=== PATIENT | female | born 1955 | race Asian ===

== ENCOUNTER 2016-09-10 10:23 | Emergency (ER) | payer MEDICAID ==
[~2016-09-10] VITALS: Ht 160 cm; Wt 58.0 kg
[~2016-09-10 10:23] MED LIST: CYCL5TAB PO; FERR325T20 PO; GABA100C8 PO; OMEP-110 PO
[2016-09-10] MEDS ORDERED: DIAZEPAM 5 MG TABLET ONE (11:19)
[2016-09-10] MEDS ORDERED: OXYcodone/APAP 5/325MG TABLET ONE (11:19)
[2016-09-10] MEDS ORDERED: KETOROLAC 30 MG/1 ML ONE (11:20)
[2016-09-10] MEDS ORDERED: KETOROLAC 30 MG/1 ML IM ONE (11:30)
[2016-09-10] MEDS ORDERED: OXYcodone/APAP 5/325MG TABLET PO ONE (11:30)
[2016-09-10] MEDS ORDERED: DIAZEPAM 5 MG TABLET PO ONE (11:30)
[2016-09-10 12:27] VITALS: BP 116/43
== END 2016-09-10 12:43 | disposition home or self-care (01) ==
LOC: ED 12:35
DX: M51.36 Other intervertebral disc degeneration, lumbar region (principal); M25.519 Pain in unspecified shoulder; G89.29 Other chronic pain
CPT/HCPCS: 72072; 72110; 96372; 99284; J1885